=== PATIENT | female | born 1970 | race Caucasian/White ===

== ENCOUNTER 2017-02-19 12:46 | Inpatient (IN) | payer OTHER ==
[2017-02-19] MEDS ORDERED: oxyCODONE-APAP 7.5-325MG 1 EACH TAB PO PRN (14:08)
[2017-02-19] MEDS ORDERED: IV VANCOMYCIN PER PHARMACY 1 EACH MISC MISCELLANE PRN (14:09)
[2017-02-19] MEDS ORDERED: VANCOMYCIN 1,250 MG in SODIUM CHLORIDE 0.9% 250 ML IVPB SCH (14:15)
[2017-02-19 14:46] LABS: Basophils % (A) 1 %; CH 34.6; CHCM 32.7; Eosinophils # (A) 0.1 k/uL (0-0.7); Eosinophils % (A) 1 %; HCT 47.2 % (34.0-46.0); HDW 2.06; Luc # (Auto) 0.27; Luc % (Auto) 4; Lymphocytes # (A) 2.1 k/uL (1.0-4.8); Lymphocytes % (A) 32 %; MCH 33.9 pg (25.0-35.0); MCHC 31.9 g/dL (31.0-37.0); MCV 106.2 fL (80.0-100.0); Macrocytosis Slight; Mean Platelet Volume 7.7; Monocytes # (A) 0.5 k/uL (0-1.0); Monocytes % (A) 8 %; Neutrophils # (A) 3.6 k/uL (1.3-7.7); Neutrophils % (A) 55 %; RBC 4.45 m/uL (3.80-5.40); RDW 12.7 % (11.5-15.5); WBC 6.5 k/uL (3.8-10.6); WBC (Perox) 6.52
[2017-02-19] MEDS ORDERED: IBUPROFEN 800 MG TAB PO PRN (15:00)
[2017-02-19 15:15] LABS: ALT 26 U/L (9-52); AST 23 U/L (14-36); Alkaline Phosphatase 50 U/L (38-126); Anion Gap 11 mmol/L; Blood Urea Nitrogen 9 mg/dL (7-17); Calcium 9.7 mg/dL (8.4-10.2); Carbon Dioxide 23 mmol/L (22-30); Chloride 105 mmol/L (98-107); Glucose 82 mg/dL (74-99); Non-African American GFR(MDRD) >60 (>60 ml/min/1.73 sqM); Sodium 139 mmol/L (137-145); Total Bilirubin 0.3 mg/dL (0.2-1.3); Total Protein 7.3 g/dL (6.3-8.2)
[2017-02-19] MEDS: PIPERACILLIN-TAZOBACTAM 3.375 GM in DEXTROSE/WATER 1 50ML.BAG IVPB SCH (15:55)
[2017-02-19 18:27] VITALS: BMI 23.9
[2017-02-19] MEDS ORDERED: NAPROXEN 250 MG TAB PO SCH (21:00)
[2017-02-19] MEDS: ALPRAZolam 0.5 MG TAB PO PRN (21:00)
[2017-02-19] MEDS: VANCOMYCIN 1,250 MG in SODIUM CHLORIDE 0.9% 250 ML IVPB SCH (21:00)
[2017-02-20] MEDS: PIPERACILLIN-TAZOBACTAM 3.375 GM in DEXTROSE/WATER 1 50ML.BAG IVPB SCH ×4 (01:15→23:10)
--- NOTE | 2017-02-20 05:45 | HP ---
HISTORY AND PHYSICAL DATE OF ADMISSION: 02/19/2017 PRESENTING COMPLAINT: Abscess of the right index finger. HISTORY OF PRESENTING COMPLAINT: This is a pleasant 47-year-old patient of Dr. Price. Her PA called me this morning for a direct admission. The patient 3 days ago developed a hangnail of the right index finger. The following day she was having pizza and she felt the pizza sauce went inside there and in the next 48 hours the finger became very painful, swollen. She went down to Dr. Price's office. They did try to drain it. As it keeps getting worse and patient did get IM ceftriaxone. As it was getting worse, they wanted a direct admission for further management. The patient denies any fever. No nausea, vomiting. The patient also noted a red streak the day before going up the [place] and this was looking to getting worse; hence, reason for coming. REVIEW OF SYSTEMS: CONSTITUTIONAL: None. HEENT: None. RESPIRATORY: Occasional cough CARDIOVASCULAR: None. GASTROINTESTINAL: None. GENITOURINARY: None. MUSCULOSKELETAL: Aches and pains in joints. DERMATOLOGICAL: As above. LYMPHATICS: None. PSYCHIATRY: Anxiety. NEUROLOGICAL: None. PAST MEDICAL HISTORY: Past medical history of some osteoarthritis, anxiety. PAST SURGICAL HISTORY: Appendectomy, bowel resection, tonsillectomy, hysterectomy with left oophorectomy. SOCIAL HISTORY: The patient is smoking less than a pack a day for close to over 20 years. The patient works at the [employer]. Lives with her sister. FAMILY HISTORY: Liver disease, myocardial infarction. HOME MEDICATIONS: 1. Robaxin 500 mg p.o. daily p.r.n. 2. Motrin 800 mg p.o. t.i.d. p.r.n. 3. Vitamin B12, 500 mcg p.o. daily. 4. Vitamin D3, 2000 units p.o. daily. 5. Vitamin C 500 mg p.o. daily. 6. Xanax 1 mg p.o. t.i.d. p.r.n. ALLERGIES: Allergies to PENICILLIN. PHYSICAL EXAMINATION: On examination, temperature 96.8, pulse 72, respiratory rate 20, blood pressure 108/61, pulse ox 96% on room air. GENERAL APPEARANCE: Average built, lying in bed, not in distress. EYES: Pupils equal. Conjunctivae normal. HENT: Oral cavity normal. NECK: JVD not raised. Mass not palpable. RESPIRATORY: Effort normal. LUNGS: Slightly decreased breath sounds. CARDIOVASCULAR: First and second sounds are normal. No edema. ABDOMEN: Soft, nontender. Liver and spleen not palpable. LYMPHATIC: No lymph node palpable of the neck and axillae. PSYCHIATRY: Alert and oriented x3. Mood and affect normal. NEUROLOGICAL: Pupils equal. Cranial nerves grossly intact. Power and sensation grossly intact. Right index finger shows more on the dorsal lateral side area of discoloration, raised, tender, some redness extending from proximally and may be a slight area of lymphangitis going up to the distal forearm. INVESTIGATIONS: White count 6.5. Hemoglobin 15. Potassium 4. ASSESSMENT: 1. Acute right index finger cellulitis with possible abscess, could be involving the PIP joint, though appears less likely having failed outpatient, starting from a hangnail. 2. Chronic nicotine dependence. PLAN: Patient is put on IV Zosyn and vancomycin. Advised against smoking. Consultation to Orthopedics and Dr. Sorensen was made. Care was discussed with the patient. MMODL / IJN: [id number] /
[2017-02-20] MEDS: VANCOMYCIN 1,250 MG in SODIUM CHLORIDE 0.9% 250 ML IVPB SCH ×2 (05:49→20:40)
[2017-02-20] MEDS: ALPRAZolam 0.5 MG TAB PO PRN ×2 (07:51→20:47)
[2017-02-20] MEDS: NAPROXEN 250 MG TAB PO SCH ×2 (07:52→20:40)
[2017-02-20 08:29] LABS: ALT 28 U/L (9-52); AST 21 U/L (14-36); Alkaline Phosphatase 44 U/L (38-126); Anion Gap 9 mmol/L; Blood Urea Nitrogen 12 mg/dL (7-17); Calcium 8.7 mg/dL (8.4-10.2); Carbon Dioxide 20 mmol/L (22-30); Chloride 109 mmol/L (98-107); Glucose 86 mg/dL (74-99); Non-African American GFR(MDRD) >60 (>60 ml/min/1.73 sqM); Potassium 4.5 mmol/L (3.5-5.1); Sodium 138 mmol/L (137-145); Total Bilirubin 0.1 mg/dL (0.2-1.3); Total Protein 6.7 g/dL (6.3-8.2)
[2017-02-20 08:47] LABS: Basophils # (A) 0.1 k/uL (0-0.2); Basophils % (A) 1 %; CH 35.2; Eosinophils # (A) 0.2 k/uL (0-0.7); Eosinophils % (A) 4 %; HCT 43.9 % (34.0-46.0); HDW 2.09; HGB 13.9 gm/dL (11.4-16.0); Luc # (Auto) 0.19; Luc % (Auto) 4; Lymphocytes # (A) 2.1 k/uL (1.0-4.8); Lymphocytes % (A) 40 %; MCH 33.9 pg (25.0-35.0); MCHC 31.6 g/dL (31.0-37.0); MCV 107.3 fL (80.0-100.0); Macrocytosis Moderate; Mean Platelet Volume 8.3; Monocytes # (A) 0.5 k/uL (0-1.0); Monocytes % (A) 9 %; Neutrophils # (A) 2.1 k/uL (1.3-7.7); Neutrophils % (A) 42 %; RBC 4.09 m/uL (3.80-5.40); RDW 13.8 % (11.5-15.5); WBC 5.1 k/uL (3.8-10.6); WBC (Perox) 4.88
--- NOTE | 2017-02-20 08:48 | P.CNOR ---
History of Present Illness - HPI Consult date: 02/20/17 History of present illness: This is a 47-year-old female who is admitted for failed outpatient treatment of right index finger abscess. Patient states 3 days ago she noticed a hangnail to the right index finger. Patient states she was eating pizza and thinks the pizza sauce caused an infection of the right index finger. Patient reports an increase in swelling and redness over the last 2 days along with a noticeable red streak going up her right arm. Patient states her primary care physician attempted to drain the abscess and she has been on oral antibiotics, but her symptoms continued to worsen. Patient was directly admitted to the hospital yesterday for IV antibiotics. Patient states the streaking has improved and she denies any fever/chills. Review of Systems See HPI. Past Medical History Past Medical History: Osteoarthritis (OA) Additional Past Medical History / Comment(s): Arthritis bilateral hands, chronic back pain. History of Any Multi-Drug Resistant Organisms: None Reported Past Surgical History: Appendectomy, Bowel Resection, Hysterectomy, Tonsillectomy Additional Past Surgical History / Comment(s): Hysterectomy with L oophorectomy and bowel was nicked which caused 3 bowel surgeries. Past Anesthesia/Blood Transfusion Reactions: No Reported Reaction Smoking Status: Current every day smoker - Past Family History Father Family Medical History: Cancer, Liver Disease, Myocardial Infarction (MS) Additional Family Medical History / Comment(s): Pt states she did not have alot of contact with her father. She states he in his late 50's eventually from a MS. She states he was an alcoholic and heavy smoker. He had cirrhosis of the liver and throat cancer. Mother Family Medical History: Congestive Heart Failure (CHF), CVA/TIA Additional Family Medical History / Comment(s): Mother had CVAs, and CHF. She at the age of 62 yrs. Medications and Allergies Home Medications Medication Instructions Recorded Confirmed Type ALPRAZolam [Xanax] 1 mg PO TID PRN 02/19/17 02/19/17 History Ascorbic Acid [Vitamin C] 500 mg PO DAILY 02/19/17 02/19/17 History Cholecalciferol [Vitamin D3] 2,000 unit PO DAILY 02/19/17 02/19/17 History Cyanocobalamin [Vitamin B-12] 500 mcg PO DAILY 02/19/17 02/19/17 History Ibuprofen [Motrin] 800 mg PO TID PRN 02/19/17 02/19/17 History Methocarbamol [Robaxin] 500 mg PO DAILY PRN 02/19/17 02/19/17 History Allergies Allergy/AdvReac Type Severity Reaction Status Date / Time Penicillins Allergy family Verified 02/19/17 15:39 history Physical Examination On exam patient is alert and oriented 3 and in no acute distress. There is mild swelling and erythema to the distal right index finger. This area is tender to palpation. There is no drainage at this time. Patient has limited range of motion of the right index finger due to pain and swelling. There are no palpable lymph nodes of the right upper extremity. There is a faint line of erythema going up the right forearm that has improved. Neurovascular and circulatory status are intact to the right upper extremity. Results An x-ray of the right hand is pending. - Labs Labs: Abnormal Lab Results - Last 24 Hours (Table) 02/19/17 02/20/17 Range/Units 14:23 07:58 Hct 47.2 H (34.0-46.0) % MCV 106.2 H (80.0-100.0) fL Chloride 109 H (98-107) mmol/L Carbon Dioxide 20 L (22-30) mmol/L Total Bilirubin 0.1 L (0.2-1.3) mg/dL H & H 02/19/17 Range/Units 14:23 Hgb 15.0 (11.4-16.0) gm/dL Hct 47.2 H (34.0-46.0) % Result Diagrams: 02/19/17 14:23 02/20/17 07:58 Assessment and Plan (1) Paronychia of finger of right hand Current Visit: Yes Status: Acute Code(s): L03.011 - CELLULITIS OF RIGHT FINGER SNOMED Code(s): 849929197 (2) Cellulitis Current Visit: Yes Status: Acute Code(s): L03.90 - CELLULITIS, UNSPECIFIED SNOMED Code(s): 918323366 Plan: #1. Continue IV antibiotics. #2. X-ray of the right hand is pending. #3. Warm compresses to the right index finger with K pad. #4. No surgical intervention is planned at this time. Will continue to follow patient closely.
--- NOTE | 2017-02-20 09:12 | XR ---
EXAMINATION TYPE: XR hand complete RT DATE OF EXAM: 02/20/2017 COMPARISON: NONE HISTORY: Pain second digit nailbed TECHNIQUE: Three-view right hand FINDINGS: No acute fractures are evident. There is soft tissue swelling at the distal phalanx index f shira. No suspicious radiopaque foreign body is evident. Degenerative changes with subluxation are present at the first metacarpal phalanx junction. Some join t space narrowing is in the proximal interphalangeal joint spaces. Tiny ossification is superior to t he ulnar styloid. IMPRESSION: 1. Soft tissue swelling distal interphalangeal joint space and distal phalanx of the index finger. 2. Degenerative joint changes first metacarpal phalangeal joint space
[2017-02-20] MEDS ORDERED: DIPH,PERTUS(ACELL)TETVAC-LF 0.5 ML VIAL IM ONE (14:06)
--- NOTE | 2017-02-20 14:13 | P.CONS ---
History of Present Illness - Reason for Consult Consult date: 02/20/17 Infected finger - History of Present Illness This is a 47-year-old female patient because history that she had a hangnail and the right index finger that was not a significant problem until after Saturday when she spilled pizza sauce on it. By Saturday it was very painful swollen and red. She went to her primary care physician, Dr. Price and she had at that time a red streak going up her arm. She was placed on oral antibiotics as she did not want to be admitted. Patient states that she also received ceftriaxone in the office IM and an I&D was attempted and a culture was sent. Patient was placed on Bactrim and she states she took 2 doses double strength but then she noticed a red streak had gone further up her arm and she went back to her primary care physician who then sent her in as a direct admission. Patient has been placed on Zosyn and vancomycin. She has been afebrile with white count of 6.5. Albumin 4.3. GFR greater than 60. She has been seen by orthopedics with no plan for any surgical intervention at this time. Heating pad is being utilized. Patient states that she feels the blackened area has spread and the area on the palmar surface is tighter and more swollen. Review of Systems All systems: negative Constitutional: Denies anorexia, Denies chills, Denies fatigue, Denies fever, Denies lethargy, Denies malaise, Denies poor appetite, Denies weakness Eyes: denies blurred vision, denies pain Ears, nose, mouth and throat: Denies dental pain, Denies headache, Denies mouth pain, Denies sore throat Cardiovascular: Denies chest pain, Denies dyspnea on exertion, Denies edema, Denies leg edema, Denies lightheadedness, Denies shortness of breath, Denies syncope Respiratory: Denies cough, Denies cough with sputum, Denies dyspnea, Denies excessive sputum Gastrointestinal: Denies abdominal pain, Denies diarrhea, Denies nausea, Denies vomiting Genitourinary: Denies dysuria, Denies hematuria, Denies urgency, Denies urinary frequency Musculoskeletal: Denies myalgias Integumentary: Reports wounds, Denies pruritus, Denies rash Neurological: Denies numbness, Denies weakness Psychiatric: Denies anxiety, Denies depression Endocrine: Denies fatigue, Denies weight change Past Medical History Past Medical History: Osteoarthritis (OA) Additional Past Medical History / Comment(s): Arthritis bilateral hands, chronic back pain. History of Any Multi-Drug Resistant Organisms: None Reported Past Surgical History: Appendectomy, Bowel Resection, Hysterectomy, Tonsillectomy Additional Past Surgical History / Comment(s): Hysterectomy with L oophorectomy and bowel was nicked which caused 3 bowel surgeries. Past Anesthesia/Blood Transfusion Reactions: No Reported Reaction Smoking Status: Current every day smoker Additional Past Alcohol Use History / Comment(s): Patient is a smoker starting at age 26 and trying to quit and cut down to 4-5 cigarettes per day. No illicit drug use. - Past Family History Father Family Medical History: Cancer, Liver Disease, Myocardial Infarction (HI) Additional Family Medical History / Comment(s): Pt states she did not have alot of contact with her father. She states he in his late 50's eventually from a [place]. She states he was an alcoholic and heavy smoker. He had cirrhosis of the liver and throat cancer. Mother Family Medical History: Congestive Heart Failure (CHF), CVA/TIA Additional Family Medical History / Comment(s): Mother had CVAs, and CHF. She at the age of 62 yrs. Medications and Allergies Home Medications Medication Instructions Recorded Confirmed Type ALPRAZolam [Xanax] 1 mg PO TID PRN 02/19/17 02/19/17 History Ascorbic Acid [Vitamin C] 500 mg PO DAILY 02/19/17 02/19/17 History Cholecalciferol [Vitamin D3] 2,000 unit PO DAILY 02/19/17 02/19/17 History Cyanocobalamin [Vitamin B-12] 500 mcg PO DAILY 02/19/17 02/19/17 History Ibuprofen [Motrin] 800 mg PO TID PRN 02/19/17 02/19/17 History Methocarbamol [Robaxin] 500 mg PO DAILY PRN 02/19/17 02/19/17 History Allergies Allergy/AdvReac Type Severity Reaction Status Date / Time Penicillins Allergy family Verified 02/19/17 15:39 history Physical Exam Vitals: Vital Signs Temp Pulse Pulse Resp BP Pulse Ox 02/20/17 08:00 73 73 15 02/20/17 07:00 97.1 F L 73 15 113/54 94 L 02/19/17 23:00 98.0 F 73 18 103/64 98 02/19/17 16:00 20 02/19/17 15:00 96.8 F L 72 20 108/61 96 Intake and Output 02/19/17 02/20/17 02/20/17 22:59 06:59 14:59 Intake Total 480 Balance 480 Intake: Oral 480 Other: Voiding Method Toilet Toilet # Voids 2 1 Weight 63.2 kg Gen: This is a 47-year-old female. She is sitting up in bed and appears to be comfortable and in no acute distress. HEENT: Head is atraumatic, normocephalic. Pupils equal, round. Sclerae is anicteric. NECK: Supple. No JVD. No lymphadenopathy. No thyromegaly. LUNGS: Clear to auscultation. No wheezes or rhonchi. No intercostal retractions. HEART: Regular rate and rhythm. No murmur. ABDOMEN: Soft. Bowel sounds are present. No masses. No tenderness. EXTREMITIES: No pedal edema. No calf tenderness. Right index finger shows area of swelling, ecchymosis starting at the nail bed extending to the DIP joint and extending to the palmar surface with erythema. NEUROLOGICAL: Patient is awake, alert and oriented x3. Cranial nerves 2 through 12 are grossly intact. Results Results: Laboratory Results WBC 5.1 k/uL (3.8-10.6) 02/20/17 07:58 RBC 4.09 m/uL (3.80-5.40) 02/20/17 07:58 Hgb 13.9 gm/dL (11.4-16.0) 02/20/17 07:58 Hct 43.9 % (34.0-46.0) 02/20/17 07:58 MCV 107.3 fL (80.0-100.0) H 02/20/17 07:58 MCH 33.9 pg (25.0-35.0) 02/20/17 07:58 MCHC 31.6 g/dL (31.0-37.0) 02/20/17 07:58 RDW 13.8 % (11.5-15.5) 02/20/17 07:58 Plt Count 221 k/uL (150-450) 02/20/17 07:58 Neutrophils % 42 % 02/20/17 07:58 Lymphocytes % 40 % 02/20/17 07:58 Monocytes % 9 % 02/20/17 07:58 Eosinophils % 4 % 02/20/17 07:58 Basophils % 1 % 02/20/17 07:58 Neutrophils # 2.1 k/uL (1.3-7.7) 02/20/17 07:58 Lymphocytes # 2.1 k/uL (1.0-4.8) 02/20/17 07:58 Monocytes # 0.5 k/uL (0-1.0) 02/20/17 07:58 Eosinophils # 0.2 k/uL (0-0.7) 02/20/17 07:58 Basophils # 0.1 k/uL (0-0.2) 02/20/17 07:58 Macrocytosis Moderate 02/20/17 07:58 Sodium 138 mmol/L (137-145) 02/20/17 07:58 Potassium 4.5 mmol/L (3.5-5.1) 02/20/17 07:58 Chloride 109 mmol/L (98-107) H 02/20/17 07:58 Carbon Dioxide 20 mmol/L (22-30) L 02/20/17 07:58 Anion Gap 9 mmol/L 02/20/17 07:58 BUN 12 mg/dL (7-17) 02/20/17 07:58 Creatinine 0.62 mg/dL (0.52-1.04) 02/20/17 07:58 Est GFR (MDRD) Af Amer >60 (>60 ml/min/1.73 sqM) 02/20/17 07:58 Est GFR (MDRD) Non-Af >60 (>60 ml/min/1.73 sqM) 02/20/17 07:58 Glucose 86 mg/dL (74-99) 02/20/17 07:58 Calcium 8.7 mg/dL (8.4-10.2) 02/20/17 07:58 Total Bilirubin 0.1 mg/dL (0.2-1.3) L 02/20/17 07:58 AST 21 U/L (14-36) 02/20/17 07:58 ALT 28 U/L (9-52) 02/20/17 07:58 Alkaline Phosphatase 44 U/L (38-126) 02/20/17 07:58 Total Protein 6.7 g/dL (6.3-8.2) 02/20/17 07:58 Albumin 3.9 g/dL (3.5-5.0) 02/20/17 07:58 CBC & Chem 7: 02/20/17 07:58 02/20/17 07:58 Labs: Abnormal Lab Results - Last 24 Hours (Table) 02/19/17 02/20/17 02/20/17 Range/Units 14:23 07:58 07:58 Hct 47.2 H (34.0-46.0) % MCV 106.2 H 107.3 H (80.0-100.0) fL Chloride 109 H (98-107) mmol/L Carbon Dioxide 20 L (22-30) mmol/L Total Bilirubin 0.1 L (0.2-1.3) mg/dL Microbiology - Last 24 Hours (Table) 02/20/17 06:05 Wound Culture - Preliminary Hand - Right Assessment and Plan Plan: This is a 47-year-old female who presented to the hospital with paronychia of the right index finger that failed outpatient treatment with ceftriaxone, I&D of the doctor's office and several doses of Bactrim. Patient is currently on Zosyn and vancomycin. Fingers to be elevated and heating pad in process. Tetanus status will be updated. We will ask for wound culture report be obtained from the doctor's office. This was obtained on Saturday. Wound culture obtained here on Saturday is in progress. Continues supportive care. Further recommendations as patient progresses. The above dictated assessment and findings were discussed with Dr. Sorensen. The impression and plan of care have been directed as dictated. Narda Anderson nurse practitioner acting as scribe for Dr. Sorensen.
--- NOTE | 2017-02-20 19:13 | PN ---
PROGRESS NOTE DATE OF SERVICE: February 20, 2017. PRESENT COMPLAINT: Right index finger abscess. INTERVAL HISTORY: Patient admitted with right index finger distal abscess. Seen by orthopedics earlier today. Recommended warm compress. Still having some pain. No fever otherwise. REVIEW OF SYSTEMS: Done for constitutional, cardiovascular, GI, pulmonary, dermatologic relevant findings as above. CURRENT MEDICATIONS: Are reviewed that include IV Zosyn and vancomycin. PHYSICAL EXAMINATION: Temperature 97.3, pulse 75, respirations 16, blood pressure 120/65, pulse ox 95% room air. Sitting up, comfortable. Eyes pupils equal, conjunctivae normal. Neck JVD not raised. Mass not palpable. RESPIRATORY: Effort. LUNGS: Clear. CARDIOVASCULAR: First and second sounds normal. Dermatological there is a superficial abscess at the distal PIP joint in the right index finger. Tender. INVESTIGATIONS: White count 5.1, potassium 4.5. ASSESSMENT: 1. Acute right index finger cellulitis and abscess adjacent to the distal PIP joint. Does not appear to be involving the joint having failed outpatient treatment. 2. Chronic nicotine dependence. PLAN: Continue current medication and treatment plan. Follow with Dr. Ramsey from Orthopedics and Dr. Sorensen and if not improved the I and D may have to be done. MMODL / IJN: [id number] /
--- NOTE | 2017-02-20 23:39 | P.CON ---
Consult Note - . Consult date: 02/20/17 Assessment/Plan:: This is a 47-year-old female patient because history that she had a hangnail and the right index finger that was not a significant problem until after Saturday when she spilled pizza sauce on it. By Saturday it was very painful swollen and red. She went to her primary care physician, Dr. Price and she had at that time a red streak going up her arm. She was placed on oral antibiotics as she did not want to be admitted. Patient states that she also received ceftriaxone in the office IM and an I&D was attempted and a culture was sent. Patient was placed on Bactrim and she states she took 2 doses double strength but then she noticed a red streak had gone further up her arm and she went back to her primary care physician who then sent her in as a direct admission. Patient has been placed on Zosyn and vancomycin. She has been afebrile with white count of 6.5. Albumin 4.3. GFR greater than 60. She has been seen by orthopedics with no plan for any surgical intervention at this time. Heating pad is being utilized. Patient states that she feels the blackened area has spread and the area on the palmar surface is tighter and more swollen. Please see consult note as dictated by nurse practitioner Mrs. Narda Anderson. She has noted the exam shows evidence of the significant paronichia of the right index finger. It has not improved in the last 24 hours despite antibiotic therapy. Continue pain control. Add in further intake inflammatory with Toradol. An antifungal therapy while cultures are pending. We'll make patient nothing by mouth after midnight. We'll ask for surgical reevaluation in the morning. If not improved a digital block and incision and drainage would be helpful. I agree with evaluation, assessment and plan as dictated by nurse practitioner Mrs. Narda Anderson.
[2017-02-21] MEDS ORDERED: FLUCONAZOLE IN NACL,ISO-OSM 200 MG in SALINE 1 100ML.BAG IVPB SCH
[2017-02-21 00:15] VITALS: TEMP 97.1
[2017-02-21] MEDS: KETOROLAC 30 MG/ML 1 ML VIAL IVP SCH ×2 (04:53→06:29)
[2017-02-21] MEDS: VANCOMYCIN 1,250 MG in SODIUM CHLORIDE 0.9% 250 ML IVPB SCH (06:26)
[2017-02-21 07:50] LABS: Anion Gap 5 mmol/L; Blood Urea Nitrogen 12 mg/dL (7-17); Calcium 8.6 mg/dL (8.4-10.2); Carbon Dioxide 23 mmol/L (22-30); Chloride 110 mmol/L (98-107); Glucose 83 mg/dL (74-99); Non-African American GFR(MDRD) >60 (>60 ml/min/1.73 sqM); Potassium 4.3 mmol/L (3.5-5.1); Sodium 138 mmol/L (137-145)
[2017-02-21 08:41] VITALS: BP 118/66; PULSE 64; RESP 18
[2017-02-21] MEDS: PIPERACILLIN-TAZOBACTAM 3.375 GM in DEXTROSE/WATER 1 50ML.BAG IVPB SCH (09:04)
[2017-02-21] MEDS ORDERED: LIDOCAINE 2% INJ 20 MG/ML (20 ML MDV) SQ STA (09:18)
--- NOTE | 2017-02-21 09:58 | P.PN ---
Subjective Progress Note Date: 02/21/17 This is a 47-year-old female admitted for paronychia of the right index finger. Patient states she has been using a heating pad to the right hand. Patient states she is noticed improvement in the streaking erythema of the right arm. Patient states she thinks the right index finger is slightly more swollen than yesterday. Patient states the right index finger has not been draining much fluid. Patient states her pain is under control and she denies any fever/chills , nausea/vomiting/diarrhea. Objective - Vital Signs Vital signs: Vital Signs Temp 97.1 F L 02/21/17 07:00 Pulse 64 02/21/17 07:00 Resp 18 02/21/17 07:00 BP 118/66 02/21/17 07:00 Pulse Ox 94 L 02/21/17 07:00 Intake & Output 02/20/17 02/21/17 02/21/17 18:59 06:59 18:59 Intake Total 480 400 Balance 480 400 Weight 63.2 kg Intake: Intake, IV Titration 400 Amount Fluconazole in NaCl,Iso- 100 Osm 200 mg In Saline 1 100ml.bag @ 100 mls/hr IVPB HS [facility] Rx#:[id number] Piperacillin-Tazobactam 3 50 .375 gm In Dextrose/Water 1 50ml.bag @ 12.5 mls/hr IVPB Q8HR [facility] Rx#: [id number] Vancomycin 1,250 mg In 250 Sodium Chloride 0.9% 250 ml @ 125 mls/hr IVPB BID@ 0600,2000 [facility] Rx#: [id number] Oral 480 Other: Voiding Method Toilet Toilet # Voids 2 1 # Bowel Movements 0 - Exam On exam patient is in no acute distress and is alert and oriented 3. There is mild erythema and swelling to the distal aspect of the right index finger. There is an area of localized swelling and erythema to the periungual area consistent with paronychia. Capillary refill is normal at less than 2 seconds. Patient has limited range of motion of the right index finger due to pain and swelling. There is no tenderness to palpation of the right hand. Neurovascular status and circulatory status are intact. The erythema of the right forearm has improved since yesterdays exam. - Labs CBC & Chem 7: 02/20/17 07:58 02/21/17 07:04 Labs: Abnormal Lab Results - Last 24 Hours (Table) 02/21/17 Range/Units 07:04 Chloride 110 H (98-107) mmol/L Microbiology - Last 24 Hours (Table) 02/20/17 06:05 Gram Stain - Preliminary Hand - Right Wound Culture - Preliminary Assessment and Plan (1) Paronychia of finger of right hand Current Visit: Yes Status: Acute Code(s): L03.011 - CELLULITIS OF RIGHT FINGER SNOMED Code(s): 142789390 (2) Cellulitis Current Visit: Yes Status: Acute Code(s): L03.90 - CELLULITIS, UNSPECIFIED SNOMED Code(s): 782013416 Plan: #1. Continue IV antibiotics per infectious disease. #2. X-ray of the right hand reviewed and is negative for any fracture or bony abnormality. #3. Continue warm compresses to the right index finger with K pad. #4. Incision and drainage is done today at bedside using sterile technique. The skin overlying the abscess was prepped with ChloraPrep, and anesthetized with 2% Xylocaine without epinephrine. A #15 scalpel was then used to incise the abscess. Minimal serosanguineous material was then extracted from the lesion. No purulent material extracted. Wound culture obtained. Gauze dressing placed on top, The patient tolerated the procedure well. #5. Will continue to follow patient closely.
[2017-02-21] MEDS ORDERED: VANCOMYCIN TROUGH DUE 1 EACH MISC MISCELLANE ONE (19:00)
--- NOTE | 2017-02-21 20:29 | P.PN ---
Subjective Progress Note Date: 02/21/17 Principal diagnosis: abscess or right hand index finger This is a 47-year-old female patient because history that she had a hangnail and the right index finger that was not a significant problem until after Saturday when she spilled pizza sauce on it. By Saturday it was very painful swollen and red. She went to her primary care physician, Dr. Price and she had at that time a red streak going up her arm. She was placed on oral antibiotics as she did not want to be admitted. Patient states that she also received ceftriaxone in the office IM and an I&D was attempted and a culture was sent. Patient was placed on Bactrim and she states she took 2 doses double strength but then she noticed a red streak had gone further up her arm and she went back to her primary care physician who then sent her in as a direct admission. Patient has been placed on Zosyn and vancomycin. She has been afebrile with white count of 6.5. Albumin 4.3. GFR greater than 60. She has been seen by orthopedics with no plan for any surgical intervention at this time. Heating pad is being utilized. Patient states that she feels the blackened area has spread and the area on the palmar surface is tighter and more swollen. The patient was made nothing by mouth last night. Was seen by orthopedics this morning. A bedside incision and drainage was performed over the abscess site. The patient is improving at this time. Objective - Vital Signs Vital signs: Vital Signs Temp 97.1 F L 02/21/17 07:00 Pulse 64 02/21/17 07:00 Resp 18 02/21/17 07:00 BP 118/66 02/21/17 07:00 Pulse Ox 94 L 02/21/17 07:00 Intake & Output 02/21/17 02/21/17 02/22/17 06:59 18:59 06:59 Intake Total 400 Balance 400 Intake: Intake, IV Titration 400 Amount Fluconazole in NaCl,Iso- 100 Osm 200 mg In Saline 1 100ml.bag @ 100 mls/hr IVPB HS [facility] Rx#:[id number] Piperacillin-Tazobactam 3 50 .375 gm In Dextrose/Water 1 50ml.bag @ 12.5 mls/hr IVPB Q8HR [facility] Rx#: [id number] Vancomycin 1,250 mg In 250 Sodium Chloride 0.9% 250 ml @ 125 mls/hr IVPB BID@ 06,1999 [facility] Rx#: [id number] Other: Voiding Method Toilet # Voids 1 - Exam Gen: This is a 47-year-old female. She is sitting up in bed and appears to be comfortable and in no acute distress. HEENT: Head is atraumatic, normocephalic. Pupils equal, round. Sclerae is anicteric. NECK: Supple. No JVD. No lymphadenopathy. No thyromegaly. LUNGS: Clear to auscultation. No wheezes or rhonchi. No intercostal retractions. HEART: Regular rate and rhythm. No murmur. ABDOMEN: Soft. Bowel sounds are present. No masses. No tenderness. EXTREMITIES: No pedal edema. No calf tenderness. Right index finger with I& Dperformed today with improvement. Erythema to the areas improved ascending erythema resolved. No lymphadenopathy is noted. NEUROLOGICAL: Patient is awake, alert and oriented x3 - Labs CBC & Chem 7: 02/20/17 07:58 02/21/17 07:04 Labs: Abnormal Lab Results - Last 24 Hours (Table) 02/21/17 Range/Units 07:04 Chloride 110 H (98-107) mmol/L Microbiology - Last 24 Hours (Table) 02/21/17 09:50 Wound Culture - Preliminary Hand - Right 02/20/17 06:05 Gram Stain - Preliminary Hand - Right Wound Culture - Preliminary Laboratory Results WBC 5.1 k/uL (3.8-10.6) 02/20/17 07:58 RBC 4.09 m/uL (3.80-5.40) 02/20/17 07:58 Hgb 13.9 gm/dL (11.4-16.0) 02/20/17 07:58 Hct 43.9 % (34.0-46.0) 02/20/17 07:58 MCV 107.3 fL (80.0-100.0) H 02/20/17 07:58 MCH 33.9 pg (25.0-35.0) 02/20/17 07:58 MCHC 31.6 g/dL (31.0-37.0) 02/20/17 07:58 RDW 13.8 % (11.5-15.5) 02/20/17 07:58 Plt Count 221 k/uL (150-450) 02/20/17 07:58 Neutrophils % 42 % 02/20/17 07:58 Lymphocytes % 40 % 02/20/17 07:58 Monocytes % 9 % 02/20/17 07:58 Eosinophils % 4 % 02/20/17 07:58 Basophils % 1 % 02/20/17 07:58 Neutrophils # 2.1 k/uL (1.3-7.7) 02/20/17 07:58 Lymphocytes # 2.1 k/uL (1.0-4.8) 02/20/17 07:58 Monocytes # 0.5 k/uL (0-1.0) 02/20/17 07:58 Eosinophils # 0.2 k/uL (0-0.7) 02/20/17 07:58 Basophils # 0.1 k/uL (0-0.2) 02/20/17 07:58 Macrocytosis Moderate 02/20/17 07:58 Sodium 138 mmol/L (137-145) 02/21/17 07:04 Potassium 4.3 mmol/L (3.5-5.1) 02/21/17 07:04 Chloride 110 mmol/L (98-107) H 02/21/17 07:04 Carbon Dioxide 23 mmol/L (22-30) 02/21/17 07:04 Anion Gap 5 mmol/L 02/21/17 07:04 BUN 12 mg/dL (7-17) 02/21/17 07:04 Creatinine 0.77 mg/dL (0.52-1.04) 02/21/17 07:04 Est GFR (MDRD) Af Amer >60 (>60 ml/min/1.73 sqM) 02/21/17 07:04 Est GFR (MDRD) Non-Af >60 (>60 ml/min/1.73 sqM) 02/21/17 07:04 Glucose 83 mg/dL (74-99) 02/21/17 07:04 Calcium 8.6 mg/dL (8.4-10.2) 02/21/17 07:04 Total Bilirubin 0.1 mg/dL (0.2-1.3) L 02/20/17 07:58 AST 21 U/L (14-36) 02/20/17 07:58 ALT 28 U/L (9-52) 02/20/17 07:58 Alkaline Phosphatase 44 U/L (38-126) 02/20/17 07:58 Total Protein 6.7 g/dL (6.3-8.2) 02/20/17 07:58 Albumin 3.9 g/dL (3.5-5.0) 02/20/17 07:58 Microbiology 02/21/17 09:50 Hand - Right Wound Culture - Preliminary 02/20/17 06:05 Hand - Right Gram Stain - Preliminary 02/20/17 06:05 Hand - Right Wound Culture - Preliminary Assessment and Plan (1) Paronychia of finger of right hand Narrative/Plan: 47-[facility] with significant difficulty with pain and swelling to the right hand index finger. She developed a paronychia and despite outpatient antibiotic therapy was not improved. Despite intravenous antibiotic therapy was still not improving overnight. She was seen by orthopedics today. A bedside incision and drainage was performed. The patient is now improving. The pulmonary erythema is resolved. The swelling to the index finger is improved. There was further drainage of a scant amount of seropurulent material when it was manipulated at this time. I dressing will be utilized. Expected her rapidly improved. She can follow up with her primary care physician and orthopedics as needed and antibiotic therapy discharge will be Augmentin and fluconazole for the likely isolate pathogens of a paronychia which be a staph, strep, anaerobic organisms and yeast such as german. If she does not rapidly improve follow-up in the office. Discharge today. Status: Acute Code(s): L03.011 - CELLULITIS OF RIGHT FINGER SNOMED Code(s): 653014599 (2) Cellulitis Status: Acute Code(s): L03.90 - CELLULITIS, UNSPECIFIED SNOMED Code(s): 908562049
--- NOTE | 2017-02-22 05:58 | DS ---
DISCHARGE SUMMARY DATE OF ADMISSION: 02/19/2017 DATE OF DISCHARGE: 02/21/2017 FINAL DIAGNOSIS: 1. Acute right index finger cellulitis with possible abscess, not involving the joint. 2. Chronic nicotine dependence. CONSULTATION: Dr. Ramsey from Orthopedics; Dr. Sorensen from Infectious Disease. HOSPITAL COURSE: This is a patient who had a hangnail that turned into a local abscess cellulitis. I&D was attempted by Dr. Ramsey. Cultures were essentially negative. The patient was afebrile. White count was normal. Discussed with Dr. Sorensen. Okay to be discharged. DISCHARGE MEDICATIONS: 1. Naproxen 5 mg q.12, twenty tablets. 2. Diflucan 100 mg a day for 7 days. 3. Augmentin 875 one tablet q.12, fourteen tablets. 4. Robaxin 500 mg daily p.r.n. 5. Vitamin B12, 500 mcg p.o. daily. 6. Vitamin D3, 2000 units p.o. daily. 7. Vitamin C 500 mg p.o. daily. 8. Xanax 1 mg p.o. t.i.d. p.r.n. The patient has been given off work for 1 week. Follow up with Dr. Price on 02/25/[address] Ramsey p.r.n. Wound care to continue as per Dr. Sorensen and Dr. Ramsey. On examination, decreased redness, swelling of the right index finger around the PIP joint. Care was discussed with the patient. MMODL / IJN: [id number] /
== END 2017-02-21 12:38 | disposition home or self-care (01) | DRG 603 ==
LOC: 4MS4W 13:29
PROVIDERS: ADMIT Hospitalist; ATTEND Hospitalist
PROC: 3E0234Z Introduction of Serum, Toxoid and Vaccine into Muscle, Percutaneous Approach (ICD-10-PCS; principal; 2017-02-20)
DX: L03.011 Cellulitis of right finger (principal); L02.511 Cutaneous abscess of right hand; F41.9 Anxiety disorder, unspecified; F17.210 Nicotine dependence, cigarettes, uncomplicated; M19.041 Primary osteoarthritis, right hand; M19.042 Primary osteoarthritis, left hand; G89.29 Other chronic pain; M54.9 Dorsalgia, unspecified; Z23 Encounter for immunization; Z79.899 Other long term (current) drug therapy; Z90.49 Acquired absence of other specified parts of digestive tract; Z90.710 Acquired absence of both cervix and uterus; Z88.0 Allergy status to penicillin
CPT/HCPCS: 80048; 80053; 85025; 87070; 87205; 90715

== ENCOUNTER → 2018-10-31 | Outpatient (CLI) | payer OTHER ==
--- NOTE | 2018-11-03 15:50 | MR ---
MR soft tissue neck HISTORY: Palpable mass Multiplanar multisequence and postcontrast images obtained through the neck following 6.5 cc Gadavist IV. No comparisons There is a well-circumscribed mass in the posterior aspect of the right parotid gland which shows int ermediate T1 signal, slight hyperintensity and T2-weighted sequences, enhancement is uniform followin g contrast administration. Lesion measures approximately 1.9 x 1.8 x 2.6 cm. Overlying marker is pres ent at this level. No additional salivary gland mass identified. No adenopathy. Cerebellopontine angles are normal. Orbits show an unremarkable appearance. There are normal vascular flow voids present. IMPRESSION: Salivary gland mass, consider pleomorphic adenoma, Warthin tumor among possibilities, con flexo press operator ENT consult
== END | disposition home or self-care (01) ==
LOC: RADMRIMAIN 18:00
PROVIDERS: ATTEND Family Medicine
DX: R22.1 Localized swelling, mass and lump, neck (principal)
CPT/HCPCS: 70543; A9585

== ENCOUNTER → 2019-06-03 | Outpatient (CLI) | payer OTHER ==
--- NOTE | 2019-06-19 12:22 | EM ---
EVENT MONITOR A 14-day event monitor. Several recordings were provided. There were several episodes when patient felt some pounding in the chest. There was evidence of predominant sinus rhythm. There were short runs of what seems to be a paroxysmal atrial tachycardia. When patient complained of some chest pain, she was in a normal sinus rhythm. When she had a 4-beat run of paroxysmal atrial tachycardia, this was an auto capture. There is evidence of some isolated PVCs, some of them 3 beats in a row. When patient complained of palpitations, there was some correlation with some isolated PVCs. No other significant arrhythmia was detected. FINAL IMPRESSION: Patient pretty much had sinus rhythm, sinus arrhythmia and ventricular ectopy. There were some ventricular triplets noted when patient complained of palpitations. She also had another episode of palpitations which was correlated with some 3 PVCs in a row. Predominant rhythm is sinus. There is evidence of PVCs, some of which are symptomatic. This event monitor is considered positive for symptomatic ventricular ectopy of up to 3 beats in a row. No other bradyarrhythmia was noted. MMODL / IJN: [id number] /
== END ==
LOC: RADECHMAIN 12:05
PROVIDERS: ATTEND Family Medicine
DX: R00.2 Palpitations (principal)
CPT/HCPCS: 93270

== ENCOUNTER → 2019-06-18 | Outpatient (CLI) | payer OTHER ==
--- NOTE | 2019-06-18 13:06 | ECHOS ---
STRESS ECHOCARDIOGRAM DATE OF SERVICE: 06/18/2019 INDICATIONS: Chest pain, palpitations. MEDICATIONS: BASELINE HEART RATE: 64 BASELINE BLOOD PRESSURE: 123/66 MAXIMUM HEART RATE: 162 MAXIMUM BLOOD PRESSURE: 196/81 85% MPHR: 145 100% MPHR: 171 METS: 10.9 MAXIMUM STAGE REACHED: IV TOTAL EXERCISE TIME: 9 minutes 25 seconds CLINICAL INFORMATION: Baseline EKG revealed normal sinus rhythm without significant ST-T changes. Patient walked for 9 minute 25 seconds, achieved a maximal heart rate of 162 beats per minute, developed fatigue, shortness of breath but did not have any angina or any arrhythmia. EKG did not reveal any ST-segment changes to indicate ischemia. This is a negative stress test with good exercise capacity. Baseline echo images revealed normal wall motion and wall thickening of all segments. At peak exercise, there was good augmentation of left ventricular wall motion and wall thickening of all segments suggesting that there is no evidence of any stress-induced ischemia on this study. FINAL IMPRESSION: 1. Good exercise capacity. Negative stress test by EKG criteria. 2. Normal stress echocardiogram. MMODL / IJN: [id number] /
== END | disposition home or self-care (01) ==
LOC: RADNMMAIN 09:53
PROVIDERS: ATTEND Family Medicine
DX: R00.2 Palpitations (principal)
CPT/HCPCS: 93351

== ENCOUNTER → 2019-06-26 | Outpatient (CLI) | payer OTHER ==
--- NOTE | 2019-06-29 14:02 | MM ---
Reason for exam: screening (asymptomatic). Last mammogram was performed 6 years and 5 months ago. History: Patient is postmenopausal and has history of high-risk lesion on a previous biopsy at age 37. Family history of breast cancer in grandmother at age 80. Excisional biopsy of the left breast, March 07, 2007. High risk left mammotome panel of the left breast, February 17, 2007. Benign left US cyst aspiration ea add of the left breast, February 17, 2007. Benign left US cyst aspiration of the left breast, February 17, 2007. Benign US left CoreBiopsy of both breasts, February 17, 2007. Took hormonal contraceptives for 7 years beginning at age 16. Physical Findings: A clinical breast exam by your physician is recommended on an annual basis and results should be correlated with mammographic findings. MG Screening Mammo w CAD Bilateral CC and MLO view(s) were taken. XCCL view(s) were taken of the right breast. Prior study comparison: January 28, 2013, CAD bilateral diagnostic mammogram. The breast tissue is heterogeneously dense. This may lower the sensitivity of mammography. Benign appearing bilateral calcifications. Right posterior depth lateral round 3mm asymmetry on XCCL. Left upper inner quadrant focal asymmetry near excisional site. Left biopsy marker. Post surgical change on the left. ASSESSMENT: Incomplete: need additional imaging evaluation, BI-RAD 0 RECOMMENDATION: Special view mammogram of both breasts. If lesion persists on supplemental views, image directed ultrasound is recommended. [facility] will attempt to contact patient to return for supplemental views and ultrasound if indicated.
== END | disposition home or self-care (01) ==
LOC: RADMAMWWP 07:13
PROVIDERS: ATTEND Family Medicine
DX: Z12.31 Encounter for screening mammogram for malignant neoplasm of breast (principal)
CPT/HCPCS: 77067

== ENCOUNTER → 2019-07-03 | Outpatient (CLI) | payer OTHER ==
--- NOTE | 2019-07-06 10:31 | MM ---
Reason for exam: additional evaluation requested from abnormal screening. Last mammogram was performed less than 1 month ago. History: Patient is postmenopausal and has history of high-risk lesion on a previous biopsy at age 37. Family history of breast cancer in grandmother at age 80. Excisional biopsy of the left breast, March 07, 2007. High risk left mammotome panel of the left breast, February 17, 2007. Benign left US cyst aspiration ea add of the left breast, February 17, 2007. Benign left US cyst aspiration of the left breast, February 17, 2007. Benign US left CoreBiopsy of both breasts, February 17, 2007. Took hormonal contraceptives for 7 years beginning at age 16. Physical Findings: Nurse did not find any significant physical abnormalities on exam. MG Work Up Mamm w CAD BILAT Bilateral CC and MLO view(s) were taken. Prior study comparison: June 26, 2019, bilateral MG screening mammo w CAD. January 28, 2013, CAD bilateral diagnostic mammogram. The breast tissue is heterogeneously dense. This may lower the sensitivity of mammography. The previously seen abnormality resolves on additional views and appears as fibroglandular tissue compatible with summation. Left asymmetries at the edges of the prior excisional site in the left upper outer quadrant persists on additional views. Ultrasound will be performed. These results were verbally communicated with the patient and result sheet given to the patient on 07/03/19. ASSESSMENT: Incomplete: need additional imaging evaluation, BI-RAD 0 RECOMMENDATION: Ultrasound of the left breast. (lumpectomy site upper outer quadrant)
--- NOTE | 2019-07-06 10:36 | USB ---
Reason for exam: additional evaluation requested from abnormal screening. History: Patient is postmenopausal and has history of high-risk lesion on a previous biopsy at age 37. Family history of breast cancer in grandmother at age 80. Excisional biopsy of the left breast, March 07, 2007. High risk left mammotome panel of the left breast, February 17, 2007. Benign left US cyst aspiration ea add of the left breast, February 17, 2007. Benign left US cyst aspiration of the left breast, February 17, 2007. Benign US left CoreBiopsy of both breasts, February 17, 2007. Took hormonal contraceptives for 7 years beginning at age 16. US Breast Workup Limited LT Left limited breast ultrasound including focal area of concern, retroareolar and axilla demonstrates a 0.6 x 0.4 x 0.5cm oval, cystic, benign lesion at 2 o'clock, a 1.9 x 1.8 x 0.9cm oval, cluster, cystic, benign lesion at 2 o'clock corresponds well to the larger posterior mass centrally and posteriorly on lateral view, biopsy of the bilateral increasingly amorphous calcifications is recommended, duct ectasia 9 o'clock, a 1.3 x 0.8 x 0.7cm benign lymph node at the axilla, benign scar seen at 10-2 o'clock and duct ectasia at the posterior nipple. These results were verbally communicated with the patient and result sheet given to the patient on 07/03/19. ASSESSMENT: Suspicious, BI-RAD 4 RECOMMENDATION: Stereotactic core biopsy of both breasts. (increasing amorphous calcifications bilaterally) Called Dr. Price's office with mammographic findings and has scheduled an appointment for the patient for 07/09/19 at 2:[address] Patton. PRELIMINARY REPORT CALLED AND FAXED TO DR. PATTON ON 07/06/19.
== END | disposition home or self-care (01) ==
LOC: RADMAMWWP 14:57
PROVIDERS: ATTEND Family Medicine
DX: R92.8 Other abnormal and inconclusive findings on diagnostic imaging of breast (principal)
CPT/HCPCS: 77066

== ENCOUNTER → 2019-09-14 | Day surgery (SDC) | payer OTHER ==
[2019-09-14 07:27] VITALS: RESP 16
[2019-09-14 10:23] VITALS: BP 137/85; PULSE 71; TEMP 97.7
--- NOTE | 2019-09-14 14:18 | MM ---
EXAMINATION TYPE: MG stereo VAD BX LT DATE OF EXAM: 09/14/2019 COMPARISON: Ultrasound and mammogram 07/03/2019 CLINICAL HISTORY: Increasing calcifications present bilaterally TECHNIQUE: Stereotactic guided core biopsy of bilateral breasts. FINDINGS: The procedure of stereotactic guided core biopsy was explained to the patient. Benefits, a lternatives, and risks were discussed. An informed consent was then obtained. Timeout was performed. The shortness pathway for biopsy was chosen. Shortness pathway was lateral approach. Radiology provi ded targeting. Radiology performed the surgery. Right breast: The skin was cleansed and anesthetized with 1% lidocaine. A small skin nino was placed. The needle was advanced and positioned was confirmed. Needle was advanced into its final position an d final positioning was confirmed. 7 core biopsies on the right were obtained. Lidocaine with epineph rine was deployed during the sampling. Sample contained calcifications. The surgical marker was deplo yed and confirmed with an additional image. A separate set up was performed. Left breast: The skin was cleansed and anesthetized with 1% lidocaine. A small skin nino was placed. The needle was advanced and positioned was confirmed. Needle was advanced into its final position and final positioning was confirmed. 6 core biopsies on the right were obtained. Lidocaine with epinephr ine was deployed during the sampling. Sample contained calcifications. The surgical marker was deploy ed and confirmed with an additional image. Postprocedure mammogram: To minimize infection transfer and given the large volume of residual calcif ications present in each biopsy site postprocedure mammogram was not performed at this time. Discharge instructions were discussed with the patient. Patient will follow-up with her surgeon for b iopsy results. The patient was released in stable condition having tolerated the procedures very well . IMPRESSION: 1. Successful stereotactic core biopsy right breast. 2. Successful stereotactic core biopsy left breast. Recommendations: 1. Recommendations are pending pathology results.
== END ==
LOC: RADMAMWWP 06:51
PROVIDERS: ATTEND Surgery
DX: N60.11 Diffuse cystic mastopathy of right breast (principal); N60.12 Diffuse cystic mastopathy of left breast; N60.22 Fibroadenosis of left breast; N60.21 Fibroadenosis of right breast; Z03.818 Encounter for observation for suspected exposure to other biological agents ruled out; Z11.59 Encounter for screening for other viral diseases; Z88.5 Allergy status to narcotic agent; Z88.0 Allergy status to penicillin
CPT/HCPCS: 88305; 87635; 19081; 19082; A4648; J2001

== ENCOUNTER → 2020-01-26 | Outpatient (CLI) | payer OTHER ==
--- NOTE | 2020-01-26 17:19 | CONS ---
CONSULTATION SLEEP CONSULTATION: REASON FOR CONSULTATION: Excessive fatigue and tiredness. This is a 49-year-old female patient [facility] with a chief complaint being exhausted when she wakes up in the morning. She is feels very tired and she thinks that she is not getting a good night's sleep. For that reason she was referred to me and this is a problem that has been going on for many years and it has gotten worse. The patient has been having loud snoring. She grinds her teeth and she seems to be quite restless at nighttime. She does wake up several times in the middle of the night. She works locally at the [employer]. She goes to work at around 6:30 am and she works until 3:30 p.m. She goes to bed between 8-9 p.m. and she wakes up 4:00 am in the morning and she feels very exhausted. She does not fall asleep while driving her car. No reported gasping for air or choking sensation. She has had previous history of depression which is currently inactive and stable. She has chronic back pain. She is taking muscle relaxants on an as-needed basis as the patient has degenerative lumbar disc disease. She smokes a few cigarettes a day. No history of alcoholism. No history of substance abuse. No history of any CVA. PAST MEDICAL HISTORY: Degenerative lumbar disc disease, vertigo, glaucoma, remote history of depression, history of grinding. PAST SURGICAL HISTORY: Includes hysterectomy and parathyroidectomy. DRUG ALLERGIES: Not known. OUTPATIENT MEDICATION LIST: Includes ibuprofen 800 mg twice a week as needed, metoprolol XR 25 mg p.o. daily, Xanax 1 mg half a tablet twice a day, Meclizine 25 mg on a p.r.n. basis, Methocarbamol 500 mg as needed, latanoprost eye drops and Systane eye drops. SOCIAL HISTORY: The patient is a chronic smoker. Smokes 1-3 cigarettes a day. No history of alcoholism. No history of IV drugs. FAMILY HISTORY: Negative for sleep apnea. REVIEW OF SYSTEMS: A 14-point review of system was done, positive findings are mentioned in history of present illness. No sleepwalking. No significant heartburn. She has occasional palpitations. She takes beta-blockers for that. She sleeps on her side and back. No preferred position. She wakes up; however, frequently in the middle of the night. No sleep paralysis. No hallucinations. No cataplexy. PHYSICAL EXAMINATION: BP is 112/57, pulse 74, respirations 16, temperature 98.4, saturation 96% on room air. Height is 5, 3, weight is 153, BMI 26.5. Neck size 13-3/4 of an inch. GENERAL APPEARANCE: Calm, comfortable, in no acute distress. HEAD: Atraumatic normocephalic. NECK: Supple. There is no JVD. No goiter or neck masses, Mallampati class 4. LUNGS: Clear to auscultation. HEART: Heart sounds are regular rate and rhythm, normal S1, S2, no murmurs. ABDOMEN: Soft, nontender, no organomegaly. EXTREMITIES: No edema, no cyanosis or clubbing. NEUROLOGIC: Awake, alert. There is no focal neurological deficits. PSYCHIATRIC: Negative for anxiety or depression. IMPRESSION: 1. Chronic fatigue with limited hypersomnia with an [place] score of 7. 2. Loud snoring. 3. Mallampati class 4. 4. Lumbar degenerative disc disease, currently on a combination of ibuprofen and methocarbamol on a p.r.n. basis. 5. History of vertigo. 6. History of glaucoma. 7. Remote history of depression. 8. History of grinding of the teeth. PLAN: 1. Proceed with a screening polysomnogram to rule out the possibility of sleep breathing disorder. 2. Overall sleep hygiene measures are good. 3. Treat comorbidities and avoid muscle relaxants. 4. Will continue to follow. MMODL / IJN: [id number] /
== END | disposition home or self-care (01) ==
LOC: SLEEP 15:05
PROVIDERS: ATTEND Internal Medicine Critical Care Medicine
DX: G47.10 Hypersomnia, unspecified (principal); R53.82 Chronic fatigue, unspecified; M51.36 Other intervertebral disc degeneration, lumbar region; Z86.69 Personal history of other diseases of the nervous system and sense organs; Z86.59 Personal history of other mental and behavioral disorders; Z98.818 Other dental procedure status; Z87.898 Personal history of other specified conditions
CPT/HCPCS: 99211

== ENCOUNTER → 2020-03-17 | Outpatient (CLI) | payer OTHER ==
--- NOTE | 2020-03-17 10:25 | MM ---
Reason for exam: follow-up at short interval from prior study. Last mammogram was performed 8 months ago. History: Patient has history of high-risk lesion on a previous biopsy at age 37. Family history of breast cancer in grandmother at age 80. Benign MG stereo VAD BX LT of the left breast, September 14, 2019. Benign MG stereo VAD BX RT of the right breast, September 14, 2019. Excisional biopsy of the left breast, March 07, 2007. High risk left mammotome panel of the left breast, February 17, 2007. Benign left US cyst aspiration ea add of the left breast, February 17, 2007. Benign left US cyst aspiration of the left breast, February 17, 2007. Benign US left CoreBiopsy of both breasts, February 17, 2007. Took hormonal contraceptives for 7 years beginning at age 16. Physical Findings: Nurse Summary: 1 x 1.5cm nodule in the left breast at 3 o'clock (nurse ts). MG 3D Diag Mammo W/Cad ONEL Bilateral CC, MLO, and XCCL view(s) were taken. XCCL with magnification, CC with magnification, and ML with magnification view(s) were taken of the left breast. Prior study comparison: July 03, 2019, bilateral MG work up mamm w CAD BILAT. June 26, 2019, bilateral MG screening mammo w CAD. Finding: There are indeterminate calcifications in the lower outer and upper outer quadrant of the left breast. These results were verbally communicated with the patient and result sheet given to the patient on 03/17/20. ASSESSMENT: Incomplete: need additional imaging evaluation, BI-RAD 0 RECOMMENDATION: Ultrasound of the left breast.
--- NOTE | 2020-03-17 10:26 | USB ---
Reason for exam: additional evaluation requested from abnormal screening. History: Patient has history of high-risk lesion on a previous biopsy at age 37. Family history of breast cancer in grandmother at age 80. Benign MG stereo VAD BX LT of the left breast, September 14, 2019. Benign MG stereo VAD BX RT of the right breast, September 14, 2019. Excisional biopsy of the left breast, March 07, 2007. High risk left mammotome panel of the left breast, February 17, 2007. Benign left US cyst aspiration ea add of the left breast, February 17, 2007. Benign left US cyst aspiration of the left breast, February 17, 2007. Benign US left CoreBiopsy of both breasts, February 17, 2007. Took hormonal contraceptives for 7 years beginning at age 16. US Breast LT Left complete breast ultrasound includes all four quadrants, the retroareolar region and axilla. Finding demonstrates a 4 x 3 x 9mm oval, cystic lesion at 12 o'clock, a 20 x 7 x 13mm cystic, mixed lesion at 2 o'clock BB and duct ectasia. These results were verbally communicated with the patient and result sheet given to the patient on 03/17/20. ASSESSMENT: Probably benign, BI-RAD 3 RECOMMENDATION: Follow-up diagnostic mammogram and ultrasound of the left breast in 6 months.
== END | disposition home or self-care (01) ==
LOC: RADMAMWWP 07:11
PROVIDERS: ATTEND Surgery
DX: R92.8 Other abnormal and inconclusive findings on diagnostic imaging of breast (principal)
CPT/HCPCS: 77066; 76641; G0279; 77062

== ENCOUNTER 2021-09-30 05:29 | Emergency (ER) | payer OTHER ==
[2021-09-30] MEDS ORDERED: ASPIRIN 81 MG PO STA (05:36)
--- NOTE | 2021-09-30 06:02 | ED ---
Arrhythmia/Palpitations HPI - General Chief Complaint: Arrhythmia/Palpitations Stated Complaint: Tachycardia Time Seen by Provider: 09/30/21 05:36 Source: patient, EMS Mode of arrival: EMS Limitations: no limitations - History of Present Illness Initial Comments: This patient is a 51-year-old woman who presents to be evaluated for rapid heartbeat. The patient states that just before 4 AM she was awakened by feeling like her heart was racing. She was a little short of breath and anxious. She states that she waited at home to see if the symptoms would resolve and when they were not improving she called EMS. She denies chest pain. No diaphoresis, nausea or vomiting. She denies previous history of arrhythmia. MD Complaint: rapid heart beat -: hour(s) Context: awoke with symptoms Associated Symptoms: shortness of breath, anxiety - Related Data Home Medications Medication Instructions Recorded Confirmed Ascorbic Acid [Vitamin C] 500 mg PO DAILY 02/19/17 09/14/19 Cholecalciferol [Vitamin D3 (25 2,000 unit PO DAILY 02/19/17 09/14/19 Mcg = 1000 Iu)] Cyanocobalamin [Vitamin B-12] 500 mcg PO DAILY 02/19/17 09/14/19 methocarbamoL [Robaxin] 500 mg PO DAILY PRN 02/19/17 09/14/19 ALPRAZolam [Xanax] 0.5 mg PO DAILY 09/09/19 09/14/19 Metoprolol Succinate [Toprol XL] 25 mg PO DAILY 09/09/19 09/14/19 Allergies Allergy/AdvReac Type Severity Reaction Status Date / Time Penicillins Allergy family Verified 03/17/20 07:55 history morphine AdvReac Vomiting Verified 03/17/20 07:55 Review of Systems ROS Statement: Those systems with pertinent positive or pertinent negative responses have been documented in the HPI. ROS Other: All systems not noted in ROS Statement are negative. Constitutional: Denies: fever, chills, weakness Eyes: Denies: vision change Respiratory: Reports: dyspnea. Denies: cough, wheezes Cardiovascular: Reports: palpitations. Denies: chest pain, orthopnea, edema, syncope Gastrointestinal: Denies: abdominal pain, nausea, vomiting Genitourinary: Denies: dysuria, hematuria Musculoskeletal: Denies: back pain Skin: Denies: rash Neurological: Denies: headache, weakness Psychiatric: Reports: anxiety Past Medical History Past Medical History: Osteoarthritis (OA) Additional Past Medical History / Comment(s): Arthritis bilateral hands, chronic back pain. Rapid heart rate History of Any Multi-Drug Resistant Organisms: None Reported Past Surgical History: Appendectomy, Bowel Resection, Hysterectomy, Tonsillectomy Additional Past Surgical History / Comment(s): Hysterectomy with L oophorectomy and bowel was nicked which caused 3 bowel surgeries. Feb 2020 peritectomy Past Anesthesia/Blood Transfusion Reactions: No Reported Reaction Past Psychological History: Anxiety Additional Psychological History / Comment(s): Pt normally alone but right now her sister is staying with her. She is independent. Past Alcohol Use History: Rare Additional Past Alcohol Use History / Comment(s): quit smoking 2018 Past Drug Use History: None Reported - Past Family History Father Family Medical History: Cancer, Liver Disease, Myocardial Infarction (MT) Additional Family Medical History / Comment(s): Pt states she did not have alot of contact with her father. She states he in his late 50's eventually from a MT. She states he was an alcoholic and heavy smoker. He had cirrhosis of the liver and throat cancer. Mother Family Medical History: Congestive Heart Failure (CHF), CVA/TIA Additional Family Medical History / Comment(s): Mother had CVAs, and CHF. She at the age of 62 yrs. General Exam Limitations: no limitations General appearance: alert, in no apparent distress Head exam: Present: atraumatic, normocephalic Eye exam: Present: normal appearance. Absent: scleral icterus, conjunctival injection ENT exam: Present: normal oropharynx Neck exam: Present: normal inspection Respiratory exam: Present: normal lung sounds bilaterally. Absent: respiratory distress, wheezes, rales, rhonchi, stridor Cardiovascular Exam: Present: regular rate, normal rhythm, normal heart sounds. Absent: systolic murmur, diastolic murmur, rubs, gallop GI/Abdominal exam: Present: soft. Absent: distended, tenderness, guarding, rebound, rigid Extremities exam: Present: normal inspection, normal capillary refill. Absent: pedal edema, calf tenderness Back exam: Present: normal inspection. Absent: CVA tenderness (R), CVA tenderness (L) Neurological exam: Present: alert Skin exam: Present: warm, dry, intact, normal color. Absent: rash Course Vital Signs 09/30/21 09/30/21 09/30/21 05:30 05:59 06:26 Pulse Rate 87 71 88 Respiratory 18 15 18 Rate Blood Pressure 144/85 102/62 102/62 O2 Sat by Pulse 95 97 97 Oximetry 09/30/21 07:39 Pulse Rate 66 Respiratory 16 Rate Blood Pressure O2 Sat by Pulse 95 Oximetry EKG Findings - EKG Results: EKG: interpreted by ERMD, sinus rhythm, normal ST/T - Blocks, [place], Hypertrophy, ST Abn: AV and intraventricular conduction: right bundle branch block (fixed/intermittent, complete/incomplete) (Incomplete) QRS axis and voltage: indeterminate axis Medical Decision Making - Medical Decision Making This patient's 51-year-old woman awakened by palpitations. Her workup is unremarkable. Her symptoms have resolved. We discussed probable underlying sleep apnea. She does have CPAP machine but states that she is unable to wear it throughout the night. Discussed appropriate follow-up as well as return parameters. - Lab Data Result diagrams: 09/30/21 05:58 09/30/21 05:58 Lab Results 09/30/21 09/30/21 09/30/21 Range/Units 05:58 05:58 05:58 WBC 9.6 (3.8-10.6) k/uL RBC 4.47 (3.80-5.40) m/uL Hgb 14.5 (11.4-16.0) gm/dL Hct 47.1 H (34.0-46.0) % MCV 105.3 H (80.0-100.0) fL MCH 32.3 (25.0-35.0) pg MCHC 30.7 L (31.0-37.0) g/dL RDW 12.4 (11.5-15.5) % Plt Count 387 (150-450) k/uL MPV 8.4 Neutrophils % 69 % Lymphocytes % 21 % Monocytes % 6 % Eosinophils % 2 % Basophils % 1 % Neutrophils # 6.6 (1.3-7.7) k/uL Lymphocytes # 2.0 (1.0-4.8) k/uL Monocytes # 0.6 (0-1.0) k/uL Eosinophils # 0.2 (0-0.7) k/uL Basophils # 0.1 (0-0.2) k/uL Macrocytosis Slight PT 10.3 (9.0-12.0) sec INR 0.9 (<1.2) APTT 20.6 L (22.0-30.0) sec Sodium 141 (137-145) mmol/L Potassium 4.0 (3.5-5.1) mmol/L Chloride 102 (98-107) mmol/L Carbon Dioxide 27 (22-30) mmol/L Anion Gap 12 mmol/L BUN 17 (7-17) mg/dL Creatinine 0.56 (0.52-1.04) mg/dL Est GFR (CKD-EPI)AfAm >90 (>60 ml/min/1.73 sqM) Est GFR (CKD-EPI)NonAf >90 (>60 ml/min/1.73 sqM) Glucose 115 H (74-99) mg/dL Calcium 9.6 (8.4-10.2) mg/dL Magnesium 1.7 (1.6-2.3) mg/dL Total Bilirubin 0.3 (0.2-1.3) mg/dL AST 26 (14-36) U/L ALT 20 (4-34) U/L Alkaline Phosphatase 70 (38-126) U/L Troponin I (0.000-0.034) ng/mL Total Protein 8.6 H (6.3-8.2) g/dL Albumin 5.2 H (3.5-5.0) g/dL TSH 0.810 (0.465-4.680) mIU/L 09/30/21 Range/Units 05:58 WBC (3.8-10.6) k/uL RBC (3.80-5.40) m/uL Hgb (11.4-16.0) gm/dL Hct (34.0-46.0) % MCV (80.0-100.0) fL MCH (25.0-35.0) pg MCHC (31.0-37.0) g/dL RDW (11.5-15.5) % Plt Count (150-450) k/uL MPV Neutrophils % % Lymphocytes % % Monocytes % % Eosinophils % % Basophils % % Neutrophils # (1.3-7.7) k/uL Lymphocytes # (1.0-4.8) k/uL Monocytes # (0-1.0) k/uL Eosinophils # (0-0.7) k/uL Basophils # (0-0.2) k/uL Macrocytosis PT (9.0-12.0) sec INR (<1.2) APTT (22.0-30.0) sec Sodium (137-145) mmol/L Potassium (3.5-5.1) mmol/L Chloride (98-107) mmol/L Carbon Dioxide (22-30) mmol/L Anion Gap mmol/L BUN (7-17) mg/dL Creatinine (0.52-1.04) mg/dL Est GFR (CKD-EPI)AfAm (>60 ml/min/1.73 sqM) Est GFR (CKD-EPI)NonAf (>60 ml/min/1.73 sqM) Glucose (74-99) mg/dL Calcium (8.4-10.2) mg/dL Magnesium (1.6-2.3) mg/dL Total Bilirubin (0.2-1.3) mg/dL AST (14-36) U/L ALT (4-34) U/L Alkaline Phosphatase (38-126) U/L Troponin I <0.012 (0.000-0.034) ng/mL Total Protein (6.3-8.2) g/dL Albumin (3.5-5.0) g/dL TSH (0.465-4.680) mIU/L Disposition Clinical Impression: Palpitations Disposition: HOME SELF-CARE Condition: Good Instructions (If sedation given, give patient instructions): Heart Palpitations (ED) Is patient prescribed a controlled substance at d/c from ED?: No Referrals: Abhijeet Price DO [Primary Care Provider] - 1-2 days
[2021-09-30 06:03] VITALS: BP 102/62
[2021-09-30 06:35] LABS: Basophils # (A) 0.1 k/uL (0-0.2); Basophils % (A) 1 %; Eosinophils # (A) 0.2 k/uL (0-0.7); Eosinophils % (A) 2 %; HCT 47.1 % (34.0-46.0); HGB 14.5 gm/dL (11.4-16.0); Lymphocytes % (A) 21 %; MCH 32.3 pg (25.0-35.0); MCHC 30.7 g/dL (31.0-37.0); MCV 105.3 fL (80.0-100.0); Macrocytosis Slight; Mean Platelet Volume 8.4; Monocytes # (A) 0.6 k/uL (0-1.0); Monocytes % (A) 6 %; Neutrophils # (A) 6.6 k/uL (1.3-7.7); Neutrophils % (A) 69 %; Platelet Count 387 k/uL (150-450); RBC 4.47 m/uL (3.80-5.40); RDW 12.4 % (11.5-15.5); WBC 9.6 k/uL (3.8-10.6)
[2021-09-30 06:49] LABS: ALT 20 U/L (4-34); AST 26 U/L (14-36); African American GFR (CKD) >90 (>60 ml/min/1.73 sqM); Albumin 5.2 g/dL (3.5-5.0); Alkaline Phosphatase 70 U/L (38-126); Anion Gap 12 mmol/L; Blood Urea Nitrogen 17 mg/dL (7-17); Calcium 9.6 mg/dL (8.4-10.2); Carbon Dioxide 27 mmol/L (22-30); Chloride 102 mmol/L (98-107); Glucose 115 mg/dL (74-99); Magnesium 1.7 mg/dL (1.6-2.3); Non-African American GFR(CKD) >90 (>60 ml/min/1.73 sqM); Sodium 141 mmol/L (137-145); Total Bilirubin 0.3 mg/dL (0.2-1.3); Total Protein 8.6 g/dL (6.3-8.2)
[2021-09-30 06:53] LABS: INR 0.9 (<1.2); Prothrombin Time 10.3 sec (9.0-12.0)
[2021-09-30 06:57] LABS: Partial Thromboplastin Time 20.6 sec (22.0-30.0)
[2021-09-30 07:40] VITALS: PULSE 66; RESP 16
--- NOTE | 2021-09-30 07:51 | XR ---
EXAMINATION TYPE: XR chest 2V DATE OF EXAM: 09/30/2021 COMPARISON: None INDICATION: Dysrhythmia TECHNIQUE: Frontal and lateral views of the chest are obtained. FINDINGS: The heart size is normal. The pulmonary vasculature is normal. The lungs are clear. IMPRESSION: 1. No acute pulmonary process.
== END 2021-09-30 07:40 | disposition home or self-care (01) ==
LOC: EC 05:29
DX: R00.2 Palpitations (principal); Z88.0 Allergy status to penicillin; Z88.5 Allergy status to narcotic agent
CPT/HCPCS: 36415; 71046; 80053; 83735; 84443; 84484; 85025; 85610; 85730; 93005